=== PATIENT | female | born 1970 | race Caucasian/White ===

== ENCOUNTER 2022-09-12 05:41 | Day surgery (SDC) | payer BC ==
[~2022-09-12] VITALS: Ht 157.5 cm; Wt 81.3 kg
[2022-09-12] VITALS (8 sets, daily range): BP systolic 95–125; BP diastolic 46–74; PULSE 68–78; TEMP 97.9–98
[2022-09-12] MEDS ORDERED: PROZAC 20MG20 MG PO (06:15)
[2022-09-12] MEDS ORDERED: HCTZ 25MG TAB25 MG PO (06:16)
[2022-09-12] MEDS ORDERED: LIPITOR 80MG80 MG PO (06:16)
[2022-09-12] MEDS ORDERED: ATIVAN 0.50.5 MG/TAB PO (06:16)
[2022-09-12] MEDS ORDERED: COZAAR 50MG50 MG/TAB PO (06:16)
[2022-09-12] MEDS ORDERED: LYRICA 75MG CAP75 MG PO ×2 (06:17→06:18)
[2022-09-12] MEDS ORDERED: TOPROL XL 25MG25 MG PO (06:18)
[2022-09-12] MEDS ORDERED: PLAVIX 75MG TAB75 MG PO (06:18)
[2022-09-12] MEDS ORDERED: REQUIP 1MG T1 MG/TAB PO (06:19)
[2022-09-12] MEDS ORDERED: NEXIUM 40MG40 MG PO (06:19)
[2022-09-12] MEDS ORDERED: FLEXERIL5 MG PO (06:20)
[2022-09-12] MEDS ORDERED: SINGULAIR 110 MG/TAB PO (06:20)
[2022-09-12] MEDS ORDERED: GLUCOPHAGE1000 MG PO (06:22)
[2022-09-12] MEDS ORDERED: TRULICITY0.75 MG/0. SQ (06:23)
[2022-09-12] MEDS ORDERED: ULTRAM 50MG TAB50 MG PO (06:55)
[2022-09-12] MEDS ORDERED: ASPIRIN 81M81 MG/TA2 PO (06:55)
--- NOTE | 2022-09-12 08:43 | NUR ---
PATIENT RETURNED TO ROOM 2 FOLLOWING PROCEDURE, ALERT AND ORIENTED. DENIES PAIN AND NAUSEA. BREATHING REGULAR AND UNLABORED. HEART TONES REGULAR. SEE CHART FOR VITAL SIGNS. NURSE HANDOFF COMPLETED IN ROOM. CARLIE WRAP PRESENT TO RIGHT LEG. RIGHT LEG ELEVATED WITH ICE APPLIED. RIGHT FOOT CAPILLARY REFILL <3 SECONDS. PALPABLE RIGHT PEDAL PULSE. PATIENT HAD COFFEE AND A MUFFIN, BOTH TOLERATED WELL. CALL LIGHT IN REACH.
--- NOTE | 2022-09-12 10:00 | NUR ---
PATIENT DENIES PAIN AND NAUSEA. DISCHARGE TEACHING COMPLETED WITH PRINTED EDUCATION AND INSTRUCTIONS SENT HOME WITH PATIENT. PATIENT INSTRUCTED TO CALL THE CLINIC AND SCHEDULE A FOLLOW UP APPOINTMENT. PATIENT VERBALIZED UNDERSTANDING OF TEACHING. WITH THE ASSISTANCE OF CRUTCHES, PATIENT AMBULATED TO THE RESTROOM AND VOIDED WITHOUT DIFFICULTY. IV REMOVED. PATIENT DISCHARGED HOME WITH SPOUSE TRANSPORT.
== END 2022-09-12 10:40 | disposition home or self-care (01) ==
LOC: SDCO 05:41
DX: M25.861 Other specified joint disorders, right knee (principal); M67.51 Plica syndrome, right knee; M21.861 Other specified acquired deformities of right lower leg; I10 Essential (primary) hypertension; K21.9 Gastro-esophageal reflux disease without esophagitis; G47.33 Obstructive sleep apnea (adult) (pediatric); F17.210 Nicotine dependence, cigarettes, uncomplicated; Z79.899 Other long term (current) drug therapy
CPT/HCPCS: J0171; J0690; J1100; J2405; J2704; J3010; J7030